=== PATIENT | male | born 1960 | race Caucasian/White ===

== ENCOUNTER 2023-04-16 06:53 | Observation (INO) ==
[2023-04-16 08:22] LABS: TSH Ultra Thyroid Stim Horm 1.04 mcIU/mL (0.34-5.60)
[2023-04-16 08:48] LABS: Hemoglobin 15.5 g/dL (13.2-16.3); Mean Corpuscular Hemoglobin 31.4 pg (27-33); Mean Corpuscular Hgb Conc 34.6 g/dL (31-36); Mean Corpuscular Volume 90.9 fL (80-97); Mean Platelet Volume 8.1 fL (7.5-11.2); Platelet Count 94 10^3/uL (150-450); Red Blood Count 4.94 10^6/uL (4.06-5.63); Red Cell Distribution Width 13.5 % (12-17); White Blood Count 8.8 10^3/uL (3.6-10.2)
[2023-04-16 09:11] LABS: High Sensitivity Troponin 1 Hr 7 pg/mL (<20)
[2023-04-16 09:22] LABS: Albumin 4.2 g/dL (3.2-5.2); Albumin/Globulin Ratio 1.7 (1-3); C Reactive Protein 15.19 mg/L (<8.01); Calcium 9.3 mg/dL (8.6-10.3); Creatinine, Serum 1.38 mg/dL (0.67-1.17); Globulin 2.5 g/dL (2-4); Magnesium 1.7 mg/dL (1.9-2.7); Potassium 3.9 mmol/L (3.5-5.0); Total Bilirubin 0.9 mg/dL (0.2-1.0); Total Protein 6.7 g/dL (6.4-8.9); eGFR CKD-EPI 58.5 (>60)
[2023-04-16 10:14] LABS: ABS Lymphocytes 4.5 10^3/uL (1.0-4.8); ABS Monocytes 0.7 10^3/uL (0.0-1.1); ABS Neutrophils 3.5 10^3/uL (1.5-7.6); ABS Nucleated RBC 0.03 10^3/ul; Eosinophil % 0.1 %; Lymphocyte % 51.3 %; Nucleated Red Blood Cells % 0.3 %/100WBC (0.0-0.8); RBC Morphology Normal (Normal)
[2023-04-16 10:16] LABS: Urine Appearance Cloudy; Urine Bilirubin Negative (Negative); Urine Blood Negative (Negative); Urine Color Amber; Urine Glucose Negative (Negative); Urine Ketones Negative (Negative); Urine Nitrite Negative (Negative); Urine Protein 1+(30 mg/dL) (Negative); Urine Specific Gravity 1.026 (1.002-1.030); Urine Urobilinogen Negative (Negative)
[2023-04-16 10:50] LABS: Urine Bacteria Absent (Absent); Urine Granular Casts Present (Absent); Urine Red Blood Cell 1+(3-5/hpf) (Absent); Urine White Blood Cell Trace(0-5/hpf) (Absent)
[2023-04-16] MEDS ORDERED: Magnesium Sulfate 2 gm BAG 2 GM/50 ML BAG IVPB ONE (10:52)
[2023-04-16] MEDS ORDERED: Metoclopramide 5 MG/ML VIAL (10 mg) IV ONE (10:52)
[2023-04-16] MEDS ORDERED: Lactated Ringers 1000 ml BAG 1,000 ML IV ONE (10:53)
[2023-04-16] MEDS ORDERED: Adenosine 3 MG/ML 2 ml VIAL (6 mg) ONE (11:40)
[2023-04-16] MEDS ORDERED: NS 0.9% 1000 ml BAG 1,000 ML IV ONE (15:15)
[2023-04-16] MEDS ORDERED: NS 0.9% 1000 ml BAG 1,000 ML IV SCH (15:30)
[2023-04-16] MEDS ORDERED: Ondansetron 4 mg VIAL 2 MG/ML 2 ml VIAL IV PRN (15:34)
[2023-04-16] MEDS ORDERED: Iodixanol (CONTRAST) 320 MG/ML 100 ML SDV IV ONE (16:01)
[2023-04-16] MEDS: Enoxaparin 40 MG/0.4 ML SYR SUBCUT SCH (16:32)
[2023-04-17 06:32] LABS: Hematocrit 42.7 % (38-53); Hemoglobin 14.7 g/dL (13.2-16.3); Mean Corpuscular Hemoglobin 31.5 pg (27-33); Mean Corpuscular Hgb Conc 34.4 g/dL (31-36); Mean Corpuscular Volume 91.6 fL (80-97); Red Blood Count 4.66 10^6/uL (4.06-5.63); Red Cell Distribution Width 13.3 % (12-17); White Blood Count 7.6 10^3/uL (3.6-10.2)
[2023-04-17 06:54] LABS: Calcium 8.8 mg/dL (8.6-10.3); Creatinine, Serum 1.19 mg/dL (0.67-1.17); Potassium 4.2 mmol/L (3.5-5.0); eGFR CKD-EPI 69.9 (>60)
[2023-04-17 08:22] LABS: ABS Basophils 0.2 10^3/uL (0.0-0.1); ABS Lymphocytes 4.3 10^3/uL (1.0-4.8); ABS Nucleated RBC 0.03 10^3/ul; Eosinophil % 0.1 %; Lymphocyte % 56.4 %; Nucleated Red Blood Cells % 0.3 %/100WBC (0.0-0.8); Platelet Count 73 10^3/uL (150-450)
[2023-04-17] MEDS: Enoxaparin 40 MG/0.4 ML SYR SUBCUT SCH (17:05)
[2023-04-17 18:17] VITALS: BP 130/79
[2023-04-19 00:06] LABS: Anaplasma phagocytophilum Positive (Negative); B. miyamotoi PCR, B Negative (Negative); Babesia divergens/MO-1 Negative (Negative); Babesia ducani Negative (Negative); Ehrlichia chaffeensis Negative (Negative); Ehrlichia ewingii/canis Negative (Negative); Ehrlichia muris eauclairensis Negative (Negative)
== END 2023-04-17 20:30 | disposition home or self-care (01) ==
LOC: EDHOLD 06:53 → ED 06:53 → MEDTELE 22:40
PROVIDERS: ADMIT Hospitalist; ATTEND Hospitalist